=== PATIENT | male | born 2000 | race Caucasian/White ===

== ENCOUNTER 2023-04-11 23:56 | Emergency (ER) | payer OTHER ==
[~2023-04-11] VITALS: Ht 180.3 cm; Wt 96.3 kg
[2023-04-12 00:47] LABS: HEMATOCRIT 47.2 % (42.0-52.0); HEMOGLOBIN 16.6 g/dl (13.5-17.5); MEAN CORPUSCULAR HEMOGLOBIN 30.7 pg (27.0-33.0); MEAN CORPUSCULAR HGB CONC 35.2 g/dl (32.0-36.5); MEAN CORPUSCULAR VOLUME 87.2 fl (80.0-96.0); PLATELET COUNT, AUTOMATED 334 10^3/uL (150-450); RED BLOOD COUNT 5.41 10^6/uL (4.30-6.10); WHITE BLOOD COUNT 7.2 10^3/uL (4.0-10.0)
[2023-04-12] MEDS ORDERED: HOME MED LIST COMPLETE! XX SCH (01:40)
[2023-04-12 12:59] VITALS: BP 153/64; TEMP 98; O2SAT 100
[2023-04-12 14:37] LABS: ALKALINE PHOSPHATASE 81 U/L (40-129); ALT/SGPT 33 U/L (1-41); AST/SGOT 26 U/L (5-40); BILIRUBIN,DIRECT < 0.2 MG/DL (0.1-0.4); BILIRUBIN,TOTAL 0.9 MG/DL (0.2-1.3); BLOOD UREA NITROGEN 6 MG/DL (7-21); CALCIUM LEVEL 9.9 MG/DL (8.4-10.2); CARBON DIOXIDE LEVEL 20 MEQ/L (22-30); CHLORIDE LEVEL 104 MEQ/L (98-107); CREATININE FOR GFR 0.7 MG/DL (0.7-1.5); GLOMERULAR FILTRATION RATE > 60.0 (>60); GLUCOSE, FASTING 101 MG/DL (70-99); POTASSIUM SERUM 3.7 MEQ/L (3.6-5.0); SODIUM LEVEL 140 MEQ/L (134-153); TOTAL PROTEIN 7.4 G/DL (6.3-8.2)
[2023-04-12 14:38] LABS: ETHYL ALCOHOL (ETHANOL) 0.03 % (0.00-0.01); SALICYLATE LEVEL < 3.0 MG/DL (2.0-20.0); THYROID STIMULATING HORMONE 1.63 UIU/ML (0.47-5.01)
[2023-04-12 14:40] LABS: AMPHETAMINES LEVEL URINE NEGATIVE (NEGATIVE); BARBITURATES URINE NEGATIVE (NEGATIVE); BENZODIAZEPINES URINE NEGATIVE (NEGATIVE); CANNABINOIDS URINE NEGATIVE (NEGATIVE); COCAINE METABOLITE URINE NEGATIVE (NEGATIVE); OPIATES URINE NEGATIVE (NEGATIVE); PHENCYCLIDINE URINE NEGATIVE (NEGATIVE)
== END 2023-04-12 12:57 | disposition home or self-care (01) ==
LOC: M ED 23:56
DX: F32.A Depression, unspecified (principal)